=== PATIENT | male | born 1985 | race Caucasian/White ===

== ENCOUNTER 2023-06-09 12:34 | Outpatient (CLI) | payer OTHER | END 2023-06-09 12:35 | disposition home or self-care (01) | LOC: RAD 12:34 | PROVIDERS: ATTEND Internal Medicine | DX: R13.10 Dysphagia, unspecified (principal); K21.9 Gastro-esophageal reflux disease without esophagitis; R09.A2 Foreign body sensation, throat | CPT/HCPCS: 74220 ==